=== PATIENT | female | born 1985 | race African-American/Black ===

== ENCOUNTER 2018-04-30 11:15 | Day surgery (SDC) | payer OTHER ==
[2018-04-30] MEDS ORDERED: SOD CHLORIDE 0.9% 1,000 ML IV (12:00)
[2018-04-30] MEDS: CEFAZOLIN 1 GM/50 ML (PMX) 50 ML IVPB ×2 (13:23→13:45)
[2018-04-30] MEDS: FENTAnyl 50 MCG/ML VIAL ×2 (14:00→14:13)
[2018-04-30] MEDS: LIDOCAINE 1%/EPI (1:100,000) (MDV) 20 ML (14:01)
[2018-04-30] MEDS: MIDAZOLAM 1 MG/ML 2 ML INJ (14:02)
[2018-04-30] MEDS: POLYMYXIN/BACITRACIN 1L IRRIG IRR (14:25)
[2018-04-30] MEDS: HEPARIN 1000 UNITS/ML 10 ML INJ (14:30)
[2018-04-30] MEDS ORDERED: HYDROCODONE/APAP (5/325) TAB PO (15:00)
[2018-04-30] MEDS: ONDANSETRON 4 MG INJ IV (15:55)
== END 2018-04-30 17:20 | disposition home or self-care (01) ==
LOC: SDS 11:15
DX: C50.912 Malignant neoplasm of unspecified site of left female breast (principal)
CPT/HCPCS: 36561; 76942